=== PATIENT | male | born 1950 | race Caucasian/White ===

== ENCOUNTER 2017-04-12 23:07 | Emergency (ER) | payer MEDICARE, OTHER ==
[2017-04-13 00:10] LABS: URINE BILIRUBIN NEGATIVE (NEGATIVE); URINE BLOOD 1+ (NEGATIVE); URINE GLUCOSE (UA) NORMAL (NORMAL); URINE KETONE NEGATIVE (NEGATIVE); URINE LEUKOCYTE ESTERASE 2+ (NEGATIVE); URINE NITRATE NEGATIVE (NEGATIVE); URINE PROTEIN TRACE (NEGATIVE); UROBILINOGEN NORMAL mg/dL (<1.0)
[2017-04-13 00:34] LABS: URINE BACTERIA 4+ (NONE SEEN); URINE WBC TNTC /[HPF] (0-3)
== END 2017-04-13 03:45 | disposition home or self-care (01) ==
LOC: ER 23:07
PROVIDERS: Emergency Medicine
DX: N39.0 Urinary tract infection, site not specified (principal); R33.9 Retention of urine, unspecified; T83.098A Other mechanical complication of other urinary catheter, initial encounter; Z86.73 Personal history of transient ischemic attack (TIA), and cerebral infarction without residual deficits; K21.9 Gastro-esophageal reflux disease without esophagitis; F41.9 Anxiety disorder, unspecified; M54.5 Low back pain; G89.29 Other chronic pain; Z79.02 Long term (current) use of antithrombotics/antiplatelets; Z79.899 Other long term (current) drug therapy
CPT/HCPCS: 51702; 81001; 87086; 87186; 99070; 99283